=== PATIENT | male | born 1955 | race Hispanic/Latino ===

== ENCOUNTER 2019-02-24 14:02 | Outpatient (CLI) | payer OTHER ==
--- NOTE | 2019-02-24 15:25 | Magnetic Resonance Report ---
MRI right knee without contrast INDICATION: M17.11 UNILATERAL PRIMARY OSTEROARTHRITIS RIGHT KNEE/M25.561RKNEE. COMPARISON: None FINDINGS: There is moderately advanced tricompartmental degenerative arthrosis with full-thickness a rticular cartilage loss in the lateral compartment and small joint effusion with osteochondral bodies /synovitis seen in the suprapatellar pouch. The lateral meniscus is macerated and extruded laterally/ towards the midline. The medial meniscus, collateral ligaments, PCL, and extensor mechanism are all i ntact. There is abnormal thickening and intermediate fluid signal within the ACL. IMPRESSION: Moderately advanced tricompartmental DJD overall greatest in the lateral compartment wit h macerated and extruded meniscus. There is a small joint effusion with synovitis/osteochondral marina s in the suprapatellar pouch. Signer Name: Danny Jaramillo MD Signed: 02/24/2019 3:20 PM Workstation Name: [id number]
== END 2019-02-24 14:03 | disposition home or self-care (01) ==
LOC: MRI 14:02
PROVIDERS: ATTEND Orthopaedic Surgery
DX: M17.11 Unilateral primary osteoarthritis, right knee (principal); M25.461 Effusion, right knee
CPT/HCPCS: 73721

== ENCOUNTER 2019-03-26 06:03 | Inpatient (IN) | payer OTHER ==
[2019-03-17 14:52] LABS: Basophils # (Auto) 0.1 K/mm3 (0.0-0.1); Basophils % (Auto) 1.1 % (0.0-1.8); Eosinophils # (Auto) 0.6 K/mm3 (0.0-0.4); Eosinophils % (Auto) 6.6 % (0.0-4.3); Hematocrit 42.3 % (35.5-45.6); Hemoglobin 14.4 gm/dl (11.8-15.2); Lymphocytes # (Auto) 2.6 K/mm3 (1.2-5.4); Lymphocytes % (Auto) 26.4 % (13.4-35.0); Mean Corpuscular HGB Conc 34 % (32-34); Mean Corpuscular Volume 93 fl (84-94); Monocytes # (Auto) 0.8 K/mm3 (0.0-0.8); Platelet Count 243 K/mm3 (140-440); Red Blood Count 4.57 M/mm3 (3.65-5.03)
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
[2019-03-17 15:13] LABS: Alanine Aminotransferase 21 units/L (7-56); Albumin 4.2 g/dL (3.9-5); BUN/Creatinine Ratio 15; Blood Urea Nitrogen 15 mg/dL (9-20); Calcium 9.6 mg/dL (8.4-10.2); Hemolysis Index 8
[~2019-03-26 06:03] MED LIST: BUPIVACAINE/PF (0.5%) 5 MG/1 ML 30 ML VIAL INFILTRATI ONE; CELECOXIB 200 MG CAP PO NR; FAMOTIDINE 20 MG/2 ML INJ IV NR; GABAPENTIN 300 MG CAP PO NR; KETOROLAC 30 MG/1 ML INJ IV ONE; MIDAZOLAM 2 MG/2 ML INJ IV NR; MORPHINE 10 MG/1 ML INJ IM ONE; SODIUM CHLORIDE 0.9% 50 ML VIAL INFILTRATI ONE
[2019-03-26] MEDS ORDERED: KETOROLAC 30 MG/1 ML INJ ONE (08:03)
[2019-03-26] MEDS ORDERED: BUPIVACAINE/PF (0.5%) 5 MG/1 ML 30 ML VIAL INFILTRATI ONE ×2 (08:03→13:15)
[2019-03-26] MEDS ORDERED: SODIUM CHLORIDE 0.9% 50 ML ONE (08:03)
[2019-03-26] MEDS ORDERED: TRANEXAMIC ACID 1,000 MG/10 ML ONE (08:03)
[2019-03-26] MEDS ORDERED: SODIUM CHLORIDE 0.9% 200 ML ONE (08:04)
--- NOTE | 2019-03-26 09:28 | Anesthesia Day of Surgery ---
Anesthesia Day of Surgery - Day of Surgery Patient Examined: Yes Patient H&P Reviewed: Yes Patient is NPO: Yes
[2019-03-26] MEDS ORDERED: CELECOXIB 200 MG CAP ONE (09:44)
[2019-03-26] MEDS ORDERED: LACTATED RINGERS 1,000 ML ONE ×2 (09:44→12:53)
[2019-03-26] MEDS: LACTATED RINGERS 1,000 ML IV SCH (09:55)
[2019-03-26] MEDS ORDERED: ONDANSETRON 4 MG/2 ML INJ IV PRN (10:00)
[2019-03-26] MEDS ORDERED: HYDROmorphone 1 MG/1 ML INJ IV PRN (10:00)
[2019-03-26] MEDS ORDERED: BUPIVACAINE-EPINEPHRINE/PF 0.25%-1:200,000 (30 ML) VIAL INFILTRATI ONE (10:00)
[2019-03-26] MEDS: fentaNYL 100 MCG/2 ML INJ IV PRN ×2 (10:34→14:05)
[2019-03-26] MEDS ORDERED: VANCOMYCIN/NS 1 GM/250 ML 1 GM/250 ML BAG IV NR (10:37)
--- NOTE | 2019-03-26 10:45 | XRay Report ---
AP STANDING VIEWS OF THE KNEES, one image INDICATION / CLINICAL INFORMATION: pre-op evaluation COMPARISON: None available. FINDINGS: BONES / JOINT(S): There is mild to moderate narrowing of the lateral compartment of the right knee an d moderate narrowing of the lateral compartment left knee. No focal lytic or sclerotic lesions are se en. No fracture is seen. SOFT TISSUES: No significant abnormality. ADDITIONAL FINDINGS: None. Signer Name: Andriy Serrano MD Signed: 03/26/2019 10:40 AM Workstation Name: [id number]
[2019-03-26] MEDS ORDERED: VANCOMYCIN 1,500 MG in SODIUM CHLORIDE 0.9% 500 ML 500 ML IV NR (11:00)
[2019-03-26] MEDS ORDERED: PROPOFOL 200 MG/20 ML VIAL IV ONE (11:30)
[2019-03-26] MEDS ORDERED: fentaNYL 100 MCG/2 ML INJ ONE (11:30)
[2019-03-26] MEDS ORDERED: LIDOCAINE MPF (2%) 20 MG/1 ML VIAL 5 ML ONE (11:31)
[2019-03-26] MEDS ORDERED: ONDANSETRON 4 MG/2 ML INJ ONE (12:06)
[2019-03-26] MEDS ORDERED: TRANEXAMIC ACID 1,000 MG/10 ML IV ONE (12:06)
[2019-03-26] MEDS ORDERED: dexAMETHasone 20 MG/5 ML VIAL ONE (12:06)
[2019-03-26] MEDS ORDERED: SODIUM CHLORIDE P/F VIAL 10 ML 10 ML ONE (12:07)
[2019-03-26] MEDS ORDERED: ePHEDrine SULFATE 50 MG/1 ML INJ ONE (12:07)
[2019-03-26] MEDS ORDERED: GLYCOPYRROLATE 0.4 MG/2 ML INJ ONE (12:15)
[2019-03-26] MEDS ORDERED: MORPHINE 10 MG/1 ML INJ ONE (12:30)
[2019-03-26] MEDS ORDERED: KETOROLAC 30 MG/1 ML INJ IV ONE (13:15)
[2019-03-26] MEDS ORDERED: MORPHINE 10 MG/1 ML INJ IM ONE (13:15)
[2019-03-26] MEDS ORDERED: SODIUM CHLORIDE 0.9% 50 ML VIAL INFILTRATI ONE (13:15)
[2019-03-26] MEDS ORDERED: MORPHINE 4 MG/1 ML INJ IV PRN (13:36)
--- NOTE | 2019-03-26 13:42 | Procedure Note ---
Date of procedure: 03/26/19 Pre-op diagnosis: severe arthritis right knee Post-op diagnosis: same Procedure: Right total knee arthroplasty Procedure The patient was brought to the or after the femoral nerve block and preoperative holding, he was placed in the or table in supine position following induction with Mac anesthesia the patient's rightt lower extremity was prepped and draped in the usual sterile manner. A timeout procedure was done to identify the patient and the correct operative site The leg was exsanguinated followed by insufflation of the pneumatic tourniquet to 300 mmHg. The midline incision was made centered over the patella this is taken down distally towards due to multiple medical incision was carried down sharply through skin and subcutaneous A medial parapatellar approach was used to gain access to the knee joint. The knee was flexed to 90 following routine examination revealed typical osteoarthritic changes where along the medial lateral compartments with peripheral osteophytes and bare bone in some places followinga large drill bit was used to enter the distal femoral canal following this the distal femoral cutting was applied approximately 8-9 mm of bone was resected next the attention was turned to the proximal tibia using the external alignment again 8-9 mL of proximal tibia was resected care was taken to protect the medial and lateral collateral ligaments the cruciate ligaments were sacrificed longus sizing of the femoral component was performed a # 4 femoral and #5 tibial components was selected this was followed by application of the 4 in 1 cutting block care was taken to resect the anterior posterior as well as solution at this at this point in time the knee was sized A flexion and extension Of 10 mm was selected this was followed by application of the trial components the knee was then taken to or range of motion and was found to be stable following this fixation holes were applied to both the distal femur and proximal tibia care was taken to remove the medial lateral menisci as well as any excess bone and soft tissue debris the knee was then copiously irrigated using pulse lavage The bone cement was mixed the bone bleeding surfaces were wiped dry using sterile gauze for menisci tibial component was inserted using the cement technique the 10 mm polyethylene spacer was applied and secured this was followed by placement of the femoral component again excess cement was removed the knee was then held in flexion ostomy extension until the cement hardened following hardening of cement again a second look was performed and the residual soft tissue N cement debris were removed at this time the knee was then taken through a range of motion and was found to be stable next the medial patellar retinaculum incision was repaired using #1 Vicryl in interrupted [id number] suture pattern the subcutaneous and skin were closed in a routine manner. Dressings were applied the patient tolerated the procedure the retinal complications he was then taken to postanesthesia recovery Anesthesia: MAC, regional Surgeon: RYAN JENNINGS Heading Machine Operator: RICH SEXTON Estimated blood loss: 50-100ml Pathology: list (bony cartilage from right knee) Specimen disposition: to lab Condition: stable Disposition: PACU
--- NOTE | 2019-03-26 14:57 | Post Anesthesia Evaluation ---
- Post Anesthesia Evaluation Patient Participated: Yes Airway Patent: Yes Stable Respiratory Function: Yes Nausea/Vomiting: No Temp > 96.8F: Yes Pain Manageable: Yes Adequeate Hydration: Yes Anesthesia Complications: Yes Block Receding Appropriately: Yes Patient on Ventilator: No
[2019-03-26] MEDS ORDERED: MIDAZOLAM 2 MG/2 ML INJ IV PRN (15:00)
[2019-03-26] MEDS ORDERED: fentaNYL 100 MCG/2 ML INJ IV PRN (15:00)
[2019-03-26] MEDS: DOCUSATE SODIUM 100 MG CAP PO SCH (22:16)
[2019-03-27] MEDS: LACTATED RINGERS 1,000 ML IV SCH (05:24)
--- NOTE | 2019-03-27 09:57 | XRay Report ---
RIGHT KNEE, 3 VIEWS INDICATION: postop evaluation. COMPARISON: None. IMPRESSION: Compared to 03/26/2019. Interval right knee replacement changes are evident. The hardware appears well applied. Normal articulation at the joint space. No fracture or bone lesion. Soft tiss ue swelling and gas is consistent with recent surgery. Signer Name: William Lui Jr, MD Signed: 03/27/2019 9:52 AM Workstation Name: [id number]
[2019-03-27 10:03] LABS: Hematocrit 35.4 % (35.5-45.6); Hemoglobin 12.2 gm/dl (11.8-15.2)
[2019-03-27] MEDS: DOCUSATE SODIUM 100 MG CAP PO SCH ×2 (10:14→22:12)
[2019-03-27] MEDS: ENOXAPARIN 40 MG/0.4 ML INJ SUB-Q SCH (10:15)
[2019-03-27] MEDS ORDERED: LORazepam 2 MG TAB PO SCH (22:00)
[2019-03-27] MEDS: HYDROcodone/ACETAMINOPHEN 5-325 MG TAB PO PRN (22:12)
--- NOTE | 2019-03-27 22:38 | Progress Note ---
Assessment and Plan s/p right TKR doing ok continue PT and observation Subjective Date of service: 03/27/19 Interval history: c/o some urinary retention, straight cath attempted but able to void on own Objective Vital signs: Vital Signs - 12hr 03/27/19 03/27/19 03/27/19 12:52 16:25 16:53 Temperature 99.0 F 100.0 F H 98.1 F Pulse Rate 93 H 98 H Respiratory 18 18 Rate Blood Pressure 134/72 122/73 O2 Sat by Pulse 98 97 Oximetry 03/27/19 22:12 Temperature Pulse Rate Respiratory 20 Rate Blood Pressure O2 Sat by Pulse Oximetry Incision: clean and dry Weight bearing status: as tolerated - Labs CBC & BMP: 03/27/19 09:48 03/17/19 14:05 Labs: Abnormal lab results 03/27/19 Range/Units 09:48 Hct 35.4 L (35.5-45.6) %
[2019-03-27] MEDS ORDERED: CYCLOBENZAPRINE 10 MG TAB PO PRN (23:22)
--- NOTE | 2019-03-27 23:30 | Consultation ---
History of Present Illness - Reason for Consult Consult date: 03/27/19 medical management Requesting physician: RYAN ZIMMERMAN - History of Present Illness Status was right TKA.. Patient doing well. Patient had urinary retention which resolved spontaneously. No shortness of breath. No other complications. .. Past History Past Medical History: other (muscle spasms) Past Surgical History: total knee replacement Social history: lives with family, IV drug use Family history: hypertension Medications and Allergies Allergies Allergy/AdvReac Type Severity Reaction Status Date / Time Penicillins Allergy Unknown Verified 03/13/19 15:18 Home Medications Medication Instructions Recorded Confirmed Last Taken Type Cyanocobalamin (Vitamin B-12) 2,500 mcg PO DAILY 03/13/19 03/13/19 Unknown History [Vitamin B12] Cyclobenzaprine [Flexeril] 10 mg PO TID PRN 03/13/19 03/13/19 Unknown History Folic Acid 0.4 mg PO QDAY 03/13/19 03/13/19 Unknown History Multivit-Min/FA/Lycopen/Lutein 1 each PO DAILY 03/13/19 03/13/19 Unknown History [Centrum Silver Men Tablet] Thiamine [Vitamin B-1] 100 mg PO QDAY 03/13/19 03/13/19 Unknown History Apixaban [Eliquis] 5 mg PO DAILY #30 tablet 03/27/19 Unknown Rx Oxycodone HCl/Acetaminophen 1 each PO Q6HR PRN #30 tablet 03/27/19 Unknown Rx [Percocet 7.5/325 mg] Active Meds: Active Medications Acetaminophen/Hydrocodone Bitart ([place] 5/325) 1 each PO Q6H PRN PRN Reason: Pain, Moderate (4-6) Last Admin: 03/27/19 22:12 Dose: 1 each Documented by: Cyclobenzaprine HCl (Flexeril) 10 mg PO TID PRN PRN Reason: Muscle Spasm Docusate Sodium (Colace) 100 mg PO BID [facility] Last Admin: 03/27/19 22:12 Dose: 100 mg Documented by: Enoxaparin Sodium (Enoxaparin) 40 mg SUB-Q QDAY [facility] Last Admin: 03/27/19 10:15 Dose: 40 mg Documented by: Lactated Ringer's (Lactated Ringers) 1,000 mls @ 100 mls/hr IV DIRECT [facility] Last Admin: 03/27/19 05:24 Dose: 100 mls/hr Documented by: Lorazepam (Ativan) 2 mg PO QHS [facility] Stop: 03/27/19 23:59 Last Admin: 03/27/19 22:12 Dose: 2 mg Documented by: Miscellaneous Medication (Cyanocobalamin (Vitamin B-12) [Vitamin B12]) 2,500 mcg PO DAILY [facility] Miscellaneous Medication (Folic Acid [Folic Acid]) 0.4 mg PO QDAY [facility] Miscellaneous Medication (Multivit-Min/Fa/Lycopen/Lutein [Centrum Silver Men Tablet]) 1 each PO DAILY [facility] Morphine Sulfate (Morphine) 4 mg IV Q4H PRN PRN Reason: Pain , Severe (7-10) Last Admin: 03/27/19 15:32 Dose: 4 mg Documented by: Thiamine HCl (Vitamin B-1) 100 mg PO QDAY [facility] Review of Systems All systems: negative Exam - Constitutional Vitals: Temp Pulse Resp BP Pulse Ox 98.1 F 98 H 20 122/73 97 03/27/19 16:53 03/27/19 16:25 03/27/19 22:12 03/27/19 16:25 03/27/19 16:25 General appearance: Present: no acute distress, well-nourished - EENT Eyes: Present: PERRL ENT: hearing intact, clear oral mucosa - Neck Neck: Present: supple, normal ROM - Respiratory Respiratory effort: normal Respiratory: bilateral: CTA - Cardiovascular Heart rate: 78 Rhythm: regular Heart Sounds: Present: S1 & S2. Absent: rub, click - Extremities Extremities: no ischemia, pulses intact, pulses symmetrical, No edema, abnormal (decreased range of motion on the right knee secondary to surgery) Peripheral Pulses: within normal limits - Abdominal General gastrointestinal: Present: soft, non-tender, non-distended, normal bowel sounds Male genitourinary: Present: normal - Integumentary Integumentary: Present: clear, warm, dry - Musculoskeletal Musculoskeletal: gait normal, strength equal bilaterally - Psychiatric Psychiatric: appropriate mood/affect, intact judgment & insight - Neurologic Neurologic: CNII-XII intact, moves all extremities - Allied Health Allied health notes reviewed: nursing, case management Results - Labs CBC & Chem 7: 03/27/19 09:48 03/17/19 14:05 Labs: Abnormal lab results 03/27/19 Range/Units 09:48 Hct 35.4 L (35.5-45.6) % Assessment and Plan - Patient Problems (1) History of total knee arthroplasty Current Visit: Yes Status: Acute Qualifiers: Laterality: right Qualified Code(s): Z96.651 - Presence of right artificial knee joint Plan to address problem: Continue physical therapy Pain management possible discharge on Saturday after discussing with Dr. Zimmerman (2) Muscle spasm Current Visit: Yes Status: Chronic Plan to address problem: Continue Flexeril (3) DVT prophylaxis Current Visit: Yes Status: Acute Plan to address problem: On SCDs and GI prophylaxis (4) Discharge planning issues Current Visit: Yes Status: Acute Plan to address problem: Primary team to call Dr. Zimmerman and discuss discharge for a Saturday or Saturday
[2019-03-28] MEDS: DOCUSATE SODIUM 100 MG CAP PO SCH ×2 (09:18→22:50)
[2019-03-28] MEDS: CYANOCOBALAMIN (VIT B-12) 1000 MCG TAB PO SCH (09:19)
[2019-03-28] MEDS: FOLIC ACID 1 MG TAB PO SCH (09:20)
[2019-03-28] MEDS: THIAMINE 100 MG TAB PO SCH (09:20)
[2019-03-28] MEDS: HYDROcodone/ACETAMINOPHEN 5-325 MG TAB PO PRN ×2 (09:22→22:52)
[2019-03-28] MEDS: MULTIVITAMINS,THER W-MINERALS TAB PO SCH (09:22)
[2019-03-28] MEDS: ENOXAPARIN 40 MG/0.4 ML INJ SUB-Q SCH (09:25)
[2019-03-28] MEDS ORDERED: FOLIC ACID 0.4 MG PO SCH (10:00)
[2019-03-28] MEDS ORDERED: CYANOCOBALAMIN 2500 MCG PO SCH (10:00)
[2019-03-28] MEDS ORDERED: [UNRECOGNIZED DRUG - OTHER] PO SCH (10:00)
[2019-03-28] MEDS ORDERED: MULTIVIT MIN PO SCH (10:00)
[2019-03-28] MEDS ORDERED: LUTEIN PO SCH (10:00)
[2019-03-28] MEDS ORDERED: LYCOPEN PO SCH (10:00)
--- NOTE | 2019-03-28 17:22 | Progress Note ---
Assessment and Plan Assessment and plan: s/p Total right knee arthroplasty by Dr. rosales Continue physical therapy Pain management Muscle spasm Continue Flexeril DVT prophylaxis On SCDs and GI prophylaxis History Interval history: right knee pain, improved Hospitalist Physical - Physical exam Narrative exam: Gen: Not in acute distress, lying in bed HEENT: Normocephalic, atraumatic Neck: supple, no JVD Heart: S1 and S2 reg, no murmurs, rubs or gallop Lungs: cleat to auscultation, no crackles Abd: soft, NT, non distended, normal BS Ext: Right lower ext in splint, no clubbing, no cyanosis Neuro: Awake, alert, oriented to person, place, but not to time - Constitutional Vitals: Temp Pulse Resp BP Pulse Ox 99.2 F 97 H 20 127/76 98 03/28/19 16:52 03/28/19 16:53 03/28/19 16:52 03/28/19 16:52 03/28/19 16:53 General appearance: Present: no acute distress, well-nourished Results - Labs CBC & Chem 7: 03/27/19 09:48 03/17/19 14:05 Labs: Laboratory Last Values WBC 9.8 K/mm3 (4.5-11.0) 03/17/19 14:05 RBC 4.57 M/mm3 (3.65-5.03) 03/17/19 14:05 Hgb 12.2 gm/dl (11.8-15.2) 03/27/19 09:48 Hct 35.4 % (35.5-45.6) L 03/27/19 09:48 MCV 93 fl (84-94) 03/17/19 14:05 MCH 32 pg (28-32) 03/17/19 14:05 MCHC 34 % (32-34) 03/17/19 14:05 RDW 12.0 % (13.2-15.2) L 03/17/19 14:05 Plt Count 243 K/mm3 (140-440) 03/17/19 14:05 Lymph % (Auto) 26.4 % (13.4-35.0) 03/17/19 14:05 [place] % (Auto) 8.0 % (0.0-7.3) H 03/17/19 14:05 Eos % (Auto) 6.6 % (0.0-4.3) H 03/17/19 14:05 Baso % (Auto) 1.1 % (0.0-1.8) 03/17/19 14:05 Lymph # 2.6 K/mm3 (1.2-5.4) 03/17/19 14:05 [place] # 0.8 K/mm3 (0.0-0.8) 03/17/19 14:05 Eos # 0.6 K/mm3 (0.0-0.4) H 03/17/19 14:05 Baso # 0.1 K/mm3 (0.0-0.1) 03/17/19 14:05 Seg Neutrophils % 57.9 % (40.0-70.0) 03/17/19 14:05 Seg Neutrophils # 5.7 K/mm3 (1.8-7.7) 03/17/19 14:05 Sodium 144 mmol/L (137-145) 03/17/19 14:05 Potassium 4.2 mmol/L (3.6-5.0) 03/17/19 14:05 Chloride 104.6 mmol/L (98-107) 03/17/19 14:05 Carbon Dioxide 22 mmol/L (22-30) 03/17/19 14:05 Anion Gap 22 mmol/L 03/17/19 14:05 BUN 15 mg/dL (9-20) 03/17/19 14:05 Creatinine 1.0 mg/dL (0.8-1.5) 03/17/19 14:05 Estimated GFR > 60 ml/min 03/17/19 14:05 BUN/Creatinine Ratio 15 % 03/17/19 14:05 Glucose 109 mg/dL (75-100) H 03/17/19 14:05 Calcium 9.6 mg/dL (8.4-10.2) 03/17/19 14:05 Total Bilirubin 0.20 mg/dL (0.1-1.2) 03/17/19 14:05 AST 20 units/L (5-40) 03/17/19 14:05 ALT 21 units/L (7-56) 03/17/19 14:05 Alkaline Phosphatase 79 units/L (35-129) 03/17/19 14:05 Total Protein 7.0 g/dL (6.3-8.2) 03/17/19 14:05 Albumin 4.2 g/dL (3.9-5) 03/17/19 14:05 Albumin/Globulin Ratio 1.5 % 03/17/19 14:05 Active Medications - Current Medications Current Medications: Generic Name Dose Route Start Last Admin Trade Name Freq PRN Reason Stop Dose Admin Acetaminophen/Hydrocodone Bitart 1 each 03/26/19 13:36 03/28/19 09:22 [place] 5/325 PO 1 each Q6H PRN Administration Pain, Moderate (4-6) Cyanocobalamin 2,500 mcg 03/28/19 10:00 03/28/19 09:19 Vitamin B-12 PO 2,500 mcg QDAY EMERY Administration Cyclobenzaprine HCl 10 mg 03/27/19 23:22 Flexeril PO TID PRN Muscle Spasm Docusate Sodium 100 mg 03/26/19 22:00 03/28/19 09:18 Colace PO 100 mg BID EMERY Administration Enoxaparin Sodium 40 mg 03/27/19 10:00 03/28/19 09:25 Enoxaparin SUB-Q 40 mg QDAY EMERY Administration Folic Acid 0.5 mg 03/28/19 10:00 03/28/19 09:20 Folvite PO 0.5 mg DAILY EMERY Administration Lactated Ringer's 1,000 mls @ 100 mls/hr 03/26/19 06:00 03/27/19 05:24 Lactated Ringers IV 100 mls/hr DIRECT EMERY Administration Morphine Sulfate 4 mg 03/26/19 13:36 03/27/19 15:32 Morphine IV 4 mg Q4H PRN Administration Pain , Severe (7-10) Multivitamins/Minerals 1 each 03/28/19 10:00 03/28/19 09:22 Theragran-M Tab PO 1 each QDAY EMERY Administration Thiamine HCl 100 mg 03/28/19 10:00 03/28/19 09:20 Vitamin B-1 PO 100 mg QDAY EMERY Administration
[2019-03-29] MEDS: CYANOCOBALAMIN (VIT B-12) 1000 MCG TAB PO SCH (10:57)
[2019-03-29] MEDS: DOCUSATE SODIUM 100 MG CAP PO SCH ×2 (10:58→23:55)
[2019-03-29] MEDS: FOLIC ACID 1 MG TAB PO SCH (10:58)
[2019-03-29] MEDS: ENOXAPARIN 40 MG/0.4 ML INJ SUB-Q SCH (10:58)
[2019-03-29] MEDS: MULTIVITAMINS,THER W-MINERALS TAB PO SCH (10:58)
[2019-03-29] MEDS: THIAMINE 100 MG TAB PO SCH (10:58)
[2019-03-29] MEDS ORDERED: IBUPROFEN 600 MG TAB PO ONE (11:00)
--- NOTE | 2019-03-29 16:59 | Progress Note ---
Assessment and Plan Assessment and plan: s/p Total right knee arthroplasty by Dr. rosales Continue physical therapy Pain management Hopefully dc soon Muscle spasm Continue Flexeril DVT prophylaxis On SCDs and GI prophylaxis History Interval history: right knee pain, improved confused on and off Hospitalist Physical - Physical exam Narrative exam: Gen: Not in acute distress, lying in bed HEENT: Normocephalic, atraumatic Neck: supple, no JVD Heart: S1 and S2 reg, no murmurs, rubs or gallop Lungs: cleat to auscultation, no crackles Abd: soft, NT, non distended, normal BS Ext: Right lower ext in splint, no clubbing, no cyanosis Neuro: Awake, alert, oriented to person, place, but not to time, moves all ext - Constitutional Vitals: Temp Pulse Resp BP Pulse Ox 98.3 F 89 18 99/65 97 03/29/19 09:21 03/29/19 09:21 03/29/19 09:21 03/29/19 09:21 03/29/19 09:21 General appearance: Present: no acute distress, well-nourished Results - Labs CBC & Chem 7: 03/27/19 09:48 03/17/19 14:05 Labs: Laboratory Last Values WBC 9.8 K/mm3 (4.5-11.0) 03/17/19 14:05 RBC 4.57 M/mm3 (3.65-5.03) 03/17/19 14:05 Hgb 12.2 gm/dl (11.8-15.2) 03/27/19 09:48 Hct 35.4 % (35.5-45.6) L 03/27/19 09:48 MCV 93 fl (84-94) 03/17/19 14:05 MCH 32 pg (28-32) 03/17/19 14:05 MCHC 34 % (32-34) 03/17/19 14:05 RDW 12.0 % (13.2-15.2) L 03/17/19 14:05 Plt Count 243 K/mm3 (140-440) 03/17/19 14:05 Lymph % (Auto) 26.4 % (13.4-35.0) 03/17/19 14:05 [place] % (Auto) 8.0 % (0.0-7.3) H 03/17/19 14:05 Eos % (Auto) 6.6 % (0.0-4.3) H 03/17/19 14:05 Baso % (Auto) 1.1 % (0.0-1.8) 03/17/19 14:05 Lymph # 2.6 K/mm3 (1.2-5.4) 03/17/19 14:05 [place] # 0.8 K/mm3 (0.0-0.8) 03/17/19 14:05 Eos # 0.6 K/mm3 (0.0-0.4) H 03/17/19 14:05 Baso # 0.1 K/mm3 (0.0-0.1) 03/17/19 14:05 Seg Neutrophils % 57.9 % (40.0-70.0) 03/17/19 14:05 Seg Neutrophils # 5.7 K/mm3 (1.8-7.7) 03/17/19 14:05 Sodium 144 mmol/L (137-145) 03/17/19 14:05 Potassium 4.2 mmol/L (3.6-5.0) 03/17/19 14:05 Chloride 104.6 mmol/L (98-107) 03/17/19 14:05 Carbon Dioxide 22 mmol/L (22-30) 03/17/19 14:05 Anion Gap 22 mmol/L 03/17/19 14:05 BUN 15 mg/dL (9-20) 03/17/19 14:05 Creatinine 1.0 mg/dL (0.8-1.5) 03/17/19 14:05 Estimated GFR > 60 ml/min 03/17/19 14:05 BUN/Creatinine Ratio 15 % 03/17/19 14:05 Glucose 109 mg/dL (75-100) H 03/17/19 14:05 Calcium 9.6 mg/dL (8.4-10.2) 03/17/19 14:05 Total Bilirubin 0.20 mg/dL (0.1-1.2) 03/17/19 14:05 AST 20 units/L (5-40) 03/17/19 14:05 ALT 21 units/L (7-56) 03/17/19 14:05 Alkaline Phosphatase 79 units/L (35-129) 03/17/19 14:05 Total Protein 7.0 g/dL (6.3-8.2) 03/17/19 14:05 Albumin 4.2 g/dL (3.9-5) 03/17/19 14:05 Albumin/Globulin Ratio 1.5 % 03/17/19 14:05 Active Medications - Current Medications Current Medications: Generic Name Dose Route Start Last Admin Trade Name Freq PRN Reason Stop Dose Admin Acetaminophen/Hydrocodone Bitart 1 each 03/26/19 13:36 03/28/19 22:52 [place] 5/325 PO 1 each Q6H PRN Administration Pain, Moderate (4-6) Cyanocobalamin 2,500 mcg 03/28/19 10:00 03/29/19 10:57 Vitamin B-12 PO 2,500 mcg QDAY EMERY Administration Cyclobenzaprine HCl 10 mg 03/27/19 23:22 Flexeril PO TID PRN Muscle Spasm Docusate Sodium 100 mg 03/26/19 22:00 03/29/19 10:58 Colace PO 100 mg BID EMERY Administration Enoxaparin Sodium 40 mg 03/27/19 10:00 03/29/19 10:58 Enoxaparin SUB-Q 40 mg QDAY EMERY Administration Folic Acid 0.5 mg 03/28/19 10:00 03/29/19 10:58 Folvite PO 0.5 mg DAILY EMERY Administration Lactated Ringer's 1,000 mls @ 100 mls/hr 03/26/19 06:00 03/27/19 05:24 Lactated Ringers IV 100 mls/hr DIRECT EMERY Administration Morphine Sulfate 4 mg 03/26/19 13:36 03/27/19 15:32 Morphine IV 4 mg Q4H PRN Administration Pain , Severe (7-10) Multivitamins/Minerals 1 each 03/28/19 10:00 03/29/19 10:58 Theragran-M Tab PO 1 each QDAY EMERY Administration Thiamine HCl 100 mg 03/28/19 10:00 03/29/19 10:58 Vitamin B-1 PO 100 mg QDAY EMERY Administration
[2019-03-29] MEDS ORDERED: ACETAMINOPHEN 325 MG TAB PO PRN (19:47)
[2019-03-29 20:02] LABS: Hematocrit 32.9 % (35.5-45.6); Hemoglobin 11.3 gm/dl (11.8-15.2); Mean Corpuscular HGB Conc 34 % (32-34); Mean Corpuscular Volume 93 fl (84-94); Platelet Count 217 K/mm3 (140-440); Red Blood Count 3.55 M/mm3 (3.65-5.03); Red Cell Distribution Width 12.2 % (13.2-15.2)
[2019-03-29 20:12] LABS: BUN/Creatinine Ratio 14; Blood Urea Nitrogen 14 mg/dL (9-20); Calcium 8.4 mg/dL (8.4-10.2); Hemolysis Index 3
[2019-03-30] MEDS ORDERED: POTASSIUM CHLORIDE ER 20 MEQ TAB PO ONE (09:00)
[2019-03-30] MEDS: DOCUSATE SODIUM 100 MG CAP PO SCH ×2 (09:23→22:15)
[2019-03-30] MEDS: MULTIVITAMINS,THER W-MINERALS TAB PO SCH (09:23)
[2019-03-30] MEDS: THIAMINE 100 MG TAB PO SCH (09:23)
[2019-03-30] MEDS: ENOXAPARIN 40 MG/0.4 ML INJ SUB-Q SCH (09:24)
[2019-03-30] MEDS: FOLIC ACID 1 MG TAB PO SCH (09:24)
[2019-03-30] MEDS: CYANOCOBALAMIN (VIT B-12) 1000 MCG TAB PO SCH (09:24)
--- NOTE | 2019-03-30 15:56 | Progress Note ---
Assessment and Plan Assessment and plan: s/p Total right knee arthroplasty by Dr. rosales Continue physical therapy Pain management Muscle spasm Continue Flexeril DVT prophylaxis On SCDs and GI prophylaxis For dc home today History Interval history: right knee pain, improved confused on and off Hospitalist Physical - Physical exam Narrative exam: Gen: Not in acute distress, lying in bed HEENT: Normocephalic, atraumatic Neck: supple, no JVD Heart: S1 and S2 reg, no murmurs, rubs or gallop Lungs: clear to auscultation, no crackles Abd: soft, NT, non distended, normal BS Ext: Right lower ext in splint, no clubbing, no cyanosis Neuro: Awake, alert, oriented to person, place, but not to time, moves all ext - Constitutional Vitals: Temp Pulse Resp BP Pulse Ox 98.5 F 77 18 102/59 94 03/30/19 07:20 03/30/19 07:20 03/30/19 07:20 03/30/19 07:20 03/30/19 07:20 General appearance: Present: no acute distress, well-nourished Results - Labs CBC & Chem 7: 03/29/19 18:55 03/29/19 18:55 Labs: Laboratory Last Values WBC 10.5 K/mm3 (4.5-11.0) 03/29/19 18:55 RBC 3.55 M/mm3 (3.65-5.03) L 03/29/19 18:55 Hgb 11.3 gm/dl (11.8-15.2) L 03/29/19 18:55 Hct 32.9 % (35.5-45.6) L 03/29/19 18:55 MCV 93 fl (84-94) 03/29/19 18:55 MCH 32 pg (28-32) 03/29/19 18:55 MCHC 34 % (32-34) 03/29/19 18:55 RDW 12.2 % (13.2-15.2) L 03/29/19 18:55 Plt Count 217 K/mm3 (140-440) 03/29/19 18:55 Lymph % (Auto) 26.4 % (13.4-35.0) 03/17/19 14:05 [place] % (Auto) 8.0 % (0.0-7.3) H 03/17/19 14:05 Eos % (Auto) 6.6 % (0.0-4.3) H 03/17/19 14:05 Baso % (Auto) 1.1 % (0.0-1.8) 03/17/19 14:05 Lymph # 2.6 K/mm3 (1.2-5.4) 03/17/19 14:05 [place] # 0.8 K/mm3 (0.0-0.8) 03/17/19 14:05 Eos # 0.6 K/mm3 (0.0-0.4) H 03/17/19 14:05 Baso # 0.1 K/mm3 (0.0-0.1) 03/17/19 14:05 Seg Neutrophils % 57.9 % (40.0-70.0) 03/17/19 14:05 Seg Neutrophils # 5.7 K/mm3 (1.8-7.7) 03/17/19 14:05 Sodium 136 mmol/L (137-145) L 03/29/19 18:55 Potassium 3.4 mmol/L (3.6-5.0) L 03/29/19 18:55 Chloride 102.2 mmol/L (98-107) 03/29/19 18:55 Carbon Dioxide 23 mmol/L (22-30) 03/29/19 18:55 Anion Gap 14 mmol/L 03/29/19 18:55 BUN 14 mg/dL (9-20) 03/29/19 18:55 Creatinine 1.0 mg/dL (0.8-1.5) 03/29/19 18:55 Estimated GFR > 60 ml/min 03/29/19 18:55 BUN/Creatinine Ratio 14 % 03/29/19 18:55 Glucose 116 mg/dL (75-100) H 03/29/19 18:55 Calcium 8.4 mg/dL (8.4-10.2) 03/29/19 18:55 Total Bilirubin 0.20 mg/dL (0.1-1.2) 03/17/19 14:05 AST 20 units/L (5-40) 03/17/19 14:05 ALT 21 units/L (7-56) 03/17/19 14:05 Alkaline Phosphatase 79 units/L (35-129) 03/17/19 14:05 Total Protein 7.0 g/dL (6.3-8.2) 03/17/19 14:05 Albumin 4.2 g/dL (3.9-5) 03/17/19 14:05 Albumin/Globulin Ratio 1.5 % 03/17/19 14:05 Active Medications - Current Medications Current Medications: Generic Name Dose Route Start Last Admin Trade Name Freq PRN Reason Stop Dose Admin Acetaminophen 650 mg 03/29/19 19:47 Tylenol PO Q6H PRN Pain, Mild (1-3) Acetaminophen/Hydrocodone Bitart 1 each 03/26/19 13:36 03/28/19 22:52 Piercy 5/325 PO 1 each Q6H PRN Administration Pain, Moderate (4-6) Cyanocobalamin 2,500 mcg 03/28/19 10:00 03/30/19 09:24 Vitamin B-12 PO 2,500 mcg QDAY EMERY Administration Cyclobenzaprine HCl 10 mg 03/27/19 23:22 Flexeril PO TID PRN Muscle Spasm Docusate Sodium 100 mg 03/26/19 22:00 03/30/19 09:23 Colace PO 100 mg BID EMERY Administration Enoxaparin Sodium 40 mg 03/27/19 10:00 03/30/19 09:24 Enoxaparin SUB-Q 40 mg QDAY EMERY Administration Folic Acid 0.5 mg 03/28/19 10:00 03/30/19 09:24 Folvite PO 0.5 mg DAILY EMERY Administration Lactated Ringer's 1,000 mls @ 100 mls/hr 03/26/19 06:00 03/27/19 05:24 Lactated Ringers IV 100 mls/hr DIRECT EMERY Administration Morphine Sulfate 4 mg 03/26/19 13:36 03/27/19 15:32 Morphine IV 4 mg Q4H PRN Administration Pain , Severe (7-10) Multivitamins/Minerals 1 each 03/28/19 10:00 03/30/19 09:23 Theragran-M Tab PO 1 each QDAY EMERY Administration Thiamine HCl 100 mg 03/28/19 10:00 03/30/19 09:23 Vitamin B-1 PO 100 mg QDAY EMERY Administration
--- NOTE | 2019-03-30 15:57 | Event Note ---
Date: 03/30/19 Patient medically stable for discharge home
--- NOTE | 2019-03-30 17:02 | Discharge Summary ---
Providers - Providers Date of Admission: 03/26/19 08:07 Date of discharge: 03/30/19 Attending physician: RYAN JENNINGS MD 03/26/19 13:36 Consult to Case Management [CONS] Routine Services Needed at Discharge: Home Health Services DME Equipment Physical Therapy Notified:: cm notified 03/27/19 11:37 Physical Therapy Evaluation and Treat [CONS] Urgent Comment: Reason For Exam: right knee replacement; POD #1 03/27/19 16:43 Consult to Physician [CONS] Routine Comment: Consulting Provider: RICH ROSS Physician Instructions: Reason For Exam: ETOH, Gerd, Back pain Primary care physician: [facility] Hospitalization Condition: Stable Procedures: right total knee replacement Hospital course: 64 y/o male with long history of right knee pain and swelling, plain xrays and mri scan reveal significant osteoarthritis. Admitted and taken to the OR where a right Total knee replacement done with without complcations. post op seen by PT and case management services. He did well and arrangement made for discharge to home with DME's and PT Disposition: DC/- HOME UNDER HOME [facility] Core Measure Documentation - Palliative Care Palliative Care/ Comfort Measures: Not Applicable - Core Measures Any of the following diagnoses?: none - VTE Discharge Requirements Deep Vein Thrombosis/Pulmonary Embolism Present on Admission: No Has pt received <5 days of overlap therapy or INR<2.0: Yes Anticoagulant overlap therapy prescribed at discharge: Yes Contraindication No Overlap Therapy order at DC: Medical Contraindication - [facility] Discharge Requirements Aspirin at discharge: No Reason for no aspirin on DC: Medical contraindication NATHAN/ARB for LVSD if EF <40%: Not Applicable Statin for LDL = or >100 mg/dl on DC: Not Applicable - Stroke Discharge Requirements Statin for LDL = or >70 mg/dl on DC: No Anticoag for atrial fib/atrial flutter: Not Applicable Antithrombotic for ischemic stroke: No Reason for no antithrombotic on DC: Medical Contraindication Exam - Physical Exam Narrative exam: right knee - incision healing well, no sign of infection, distal n/v intact - Constitutional Vitals: Temp Pulse Resp BP Pulse Ox 98.5 F 77 18 102/59 94 03/30/19 07:20 03/30/19 07:20 03/30/19 07:20 03/30/19 07:20 03/30/19 07:20 General appearance: Present: no acute distress, well-nourished - EENT Eyes: Present: PERRL ENT: hearing intact, clear oral mucosa - Neck Neck: Present: supple, normal ROM - Respiratory Respiratory effort: normal Respiratory: bilateral: CTA - Cardiovascular Heart Sounds: Present: S1 & S2. Absent: rub, click - Extremities Extremities: pulses symmetrical, No edema Peripheral Pulses: within normal limits - Abdominal General gastrointestinal: Present: soft, non-tender, non-distended, normal bowel sounds Male genitourinary: Present: normal - Integumentary Integumentary: Present: clear, warm, dry - Musculoskeletal Musculoskeletal: gait normal, strength equal bilaterally - Psychiatric Psychiatric: appropriate mood/affect, intact judgment & insight - Neurologic Neurologic: CNII-XII intact, moves all extremities Plan Activity: advance as tolerated Weight Bearing Status: Weight Bear as Tolerated Diet: regular Wound: keep clean and dry Special Instructions: physical therapy Durable Medical Equipment Needed Upon Discharge: Walker-Standard, Bedside Commode Follow up with: RYAN JENNINGS MD [Staff Physician] - 14 Days (follow up on 04/18/19 ) [facility] [Primary Care [facility]] - 7 Days Prescriptions: Apixaban [Eliquis] 5 mg PO DAILY #30 tablet Oxycodone HCl/Acetaminophen [Percocet 7.5/325 mg] 1 each PO Q6HR PRN #30 tablet PRN Reason: Pain
[2019-03-31] MEDS: ENOXAPARIN 40 MG/0.4 ML INJ SUB-Q SCH (09:14)
[2019-03-31] MEDS: DOCUSATE SODIUM 100 MG CAP PO SCH (09:14)
[2019-03-31] MEDS: THIAMINE 100 MG TAB PO SCH (09:14)
[2019-03-31] MEDS: MULTIVITAMINS,THER W-MINERALS TAB PO SCH (09:14)
[2019-03-31] MEDS: CYANOCOBALAMIN (VIT B-12) 1000 MCG TAB PO SCH (09:14)
[2019-03-31] MEDS: FOLIC ACID 1 MG TAB PO SCH (09:14)
[2019-03-31 15:15] VITALS: BP 114/76
== END 2019-03-31 17:00 | disposition home health service (06) | DRG 470 ==
LOC: 3A 08:07 → 3B-SURG 14:23
PROVIDERS: ADMIT Orthopaedic Surgery; ATTEND Orthopaedic Surgery
PROC: 0SRC0J9 Replacement of Right Knee Joint with Synthetic Substitute, Cemented, Open Approach (ICD-10-PCS; principal; 2019-03-26)
DX: M17.11 Unilateral primary osteoarthritis, right knee (principal); K21.9 Gastro-esophageal reflux disease without esophagitis; M62.838 Other muscle spasm; R33.9 Retention of urine, unspecified; Z87.891 Personal history of nicotine dependence; Z72.89 Other problems related to lifestyle; Z82.49 Family history of ischemic heart disease and other diseases of the circulatory system; Z88.0 Allergy status to penicillin; Z79.899 Other long term (current) drug therapy
CPT/HCPCS: 36415; 64450; 73565; 80048; 80053; 85014; 85018; 85025; 85027; 88304; 88305; 88311; G0378; C1776; J1100; J1650; J1885; J2250; J2270; J2405; J2704; J3010; J3370; J7040; J7120

== ENCOUNTER 2019-10-06 07:07 | Day surgery (SDC) | payer OTHER ==
[2019-10-06 07:49] VITALS: BP 99/64
[2019-10-06] MEDS ORDERED: LIDOCAINE (1%) 10 MG/1 ML VIAL 20 ML MDV ONE (07:49)
[2019-10-06] MEDS ORDERED: BUPIVACAINE/PF (0.5%) 5 MG/1 ML 30 ML VIAL INFILTRATI ONE ×3 (07:49→08:41)
[2019-10-06] MEDS ORDERED: LIDOCAINE (1%) 10 MG/1 ML VIAL 20 ML MDV INFILTRATI ONE (08:41)
--- NOTE | 2019-10-06 09:36 | XRay Report ---
LUMBOSACRAL SPINE 2 VIEWS INDICATION: CHRONIC LOW BACK PAIN.. COMPARISON: None. IMPRESSION: 2 fluoroscopic images of the lower lumbar spine are presented. Previous fusion from L3-S 1 has been performed. Needle placement has been performed along the left side for nerve block. Pleas e correlate with the procedural report by Dr. Zimmerman. Signer Name: William Lui Jr, MD Signed: 10/06/2019 9:32 AM Workstation Name: [id number]
--- NOTE | 2019-10-15 10:07 | Procedure Note ---
Date of procedure: 10/06/19 Pre-op diagnosis: Chronic low back pain Post-op diagnosis: same Procedure: Lumbar facet blocks at left L2 through L5 Procedure The patient was brought to the OR and placed prone onto the OR table, the lumbar spine was prepped and draped in the usual sterile manner. A timeout procedure was done to identify the patient and the correct levels of nerve block being performed the patient was awake during the procedure. Using C-arm fluoroscopy the L5 through L2 levels were visualized in both the PA and 45 oblique views 20-gauge spinal needles were inserted again under direct fluoroscopic control after placing the spinal needles and the correct position and Marcaine injection was performed using 1% without epinephrine. The patient tolerated the procedure and no complications Anesthesia: local Surgeon: RYAN JENNINGS Estimated blood loss: minimal Pathology: none Condition: stable Disposition: observation
== END 2019-10-06 09:12 | disposition home or self-care (01) ==
LOC: OR 07:07
PROVIDERS: ATTEND Orthopaedic Surgery
DX: M54.5 Low back pain (principal); G89.29 Other chronic pain; M62.838 Other muscle spasm; M17.11 Unilateral primary osteoarthritis, right knee; E78.00 Pure hypercholesterolemia, unspecified; K21.9 Gastro-esophageal reflux disease without esophagitis; F41.9 Anxiety disorder, unspecified; Z72.89 Other problems related to lifestyle; Z88.0 Allergy status to penicillin; Z88.5 Allergy status to narcotic agent; Z79.899 Other long term (current) drug therapy; Z87.891 Personal history of nicotine dependence; Z96.659 Presence of unspecified artificial knee joint; Z98.41 Cataract extraction status, right eye; Z98.42 Cataract extraction status, left eye; Z98.890 Other specified postprocedural states
CPT/HCPCS: 72100